=== PATIENT | male | born 1990 | race Caucasian/White ===

== ENCOUNTER 2021-08-20 19:55 | Emergency (ER) | payer SELFPAY ==
--- NOTE | 2021-08-20 19:42 | ECG_ITS ---
APPROVED REPORT Exam: Resting ECG HR:90 bpm ECG Measurements Heart Rate 90 AXES AL 134 P 52 QRSd 96 QRS 80 QT 350 T 57 QTc 428 Conclusion Normal sinus rhythm Normal ECG Electronically signed by : Matheus Gunter MD 08/23/2021 20:27:47
[2021-08-20 19:53] VITALS: BP 148/122; PULSE 103; RESP 18; TEMP 37.1; O2SAT 97; BMI 23.3
[2021-08-20 19:54] VITALS: BMI 23.3
--- NOTE | 2021-08-20 19:55 | CT_ITS ---
PROCEDURE INFORMATION: Exam: CTA Chest With Contrast Exam date and time: 08/20/2021 7:55 PM Age: 30 years old Clinical indication: Pain; Chest pressure; Additional info: Chest pain TECHNIQUE: Imaging protocol: Computed tomographic angiography of the chest with contrast. 3D rendering (Not supervised by radiologist): MIP and/or 3D reconstructed images were created by the technologist. Radiation optimization: All CT scans at this facility use at least one of these dose optimization techniques: automated exposure control; mA and/or kV adjustment per patient size (includes targeted exams where dose is matched to clinical indication); or iterative reconstruction. Contrast material: ISOVUE; Contrast volume: 70 ml; Contrast route: INTRAVENOUS (IV); COMPARISON: No relevant prior studies available. FINDINGS: Pulmonary arteries: Normal. No pulmonary emboli. Aorta: Unremarkable. No aortic aneurysm. No aortic dissection. Lungs: Unremarkable. No consolidation. No masses. Pleural spaces: Unremarkable. No pneumothorax. No pleural effusion. Heart: Unremarkable. No cardiomegaly. No pericardial effusion. Lymph nodes: Unremarkable. No enlarged lymph nodes. Bones/joints: Unremarkable. No acute fracture. Soft tissues: Unremarkable. IMPRESSION: No acute findings.
--- NOTE | 2021-08-20 19:55 | XR_ITS ---
PROCEDURE INFORMATION: Exam: XR Chest Exam date and time: 08/20/2021 7:55 PM Age: 30 years old Clinical indication: Sternal or substernal pain; Patient HX: Chest pain, patient states he has had 3 pulmonary embolisms in the past. Smoker. TECHNIQUE: Imaging protocol: XR of the chest. Views: 2 views. COMPARISON: CT ANGIO CHEST PE PROTOCOL 08/20/2021 8:14 PM FINDINGS: Lungs: Unremarkable. No consolidation. Pleural spaces: Unremarkable. No pleural effusion. No pneumothorax. Heart/Mediastinum: Unremarkable. No cardiomegaly. Bones/joints: Unremarkable. IMPRESSION: No acute findings.
--- NOTE | 2021-08-20 20:00 | PC.NURSE ---
pt arrived ems pt stated to had drank half a bottle of liquor prior to ambulance arrival. pt was ambulatory upon arrival and a&o*4
[2021-08-20 20:16] LABS: Microscopic, Urine URINE MICROSCOPIC (MICROSCOPIC)
[2021-08-20 20:17] LABS: Appearance,Urine CLEAR (Clear); Bilirubin,Urine Negative (Negative); Blood, Urine Negative (Negative); Color,Urine YELLOW (Yellow); Glucose,Urine (UA) Negative (Negative); Ketones,Urine Negative (Negative); Leukocyte Esterase,Urine Negative (Negative); Nitrate,Urine Negative (Negative); Protein,Urine Negative (Negative); Specific Gravity, Urine <= 1.005 (1.005-1.030); Urobilinogen,Urine 0.2 EU/dl (0.2)
[2021-08-20 20:20] LABS: Alanine Aminotransferase 29 U/L (12-78); Albumin Level 4.7 g/dl (3.5-5.0); Albumin/Globulin Ratio 1.3 (1.1-1.8); Alkaline Phosphatase 110 U/L (38-126); Anion Gap 14.6 mEq/L (5-15); Aspartate Amino Transferase 57 U/L (17-59); Bilirubin,Total 0.3 mg/dl (0.2-1.3); Blood Urea Nitrogen 7 mg/dl (9-20); Calcium 10.2 mg/dl (8.4-10.2); Carbon Dioxide 32 mmol/L (22.0-30.0); Chloride 103 mmol/L (98-107); Creatinine Clearance Estimated 145 mL/min (50-200); Estimated Glomerular Filt Rate 100 ml/min (>60); GFR (African American) 121 ML/MIN (>60); Globulin 3.7 g/dL (1.3-3.2); Glucose 98 mg/dl (74-100); Potassium 4.6 mmoL/L (3.5-5.1); Sodium 145 mmol/L (136-145); Total Protein,Serum 8.4 g/dl (6.3-8.2)
--- NOTE | 2021-08-20 20:20 | [facility].EDCP ---
ED Disposition Clinical Impression: Atypical chest pain Elevated ETOH level Qualifiers: Blood alcohol level: 240 mg/100 ml or more Qualified Code(s): Y90.8 - Blood alcohol level of 240 mg/100 ml or more Disposition: Left Against Medical Advice Condition on Discharge: Good Referrals: Provider,Referral, [Primary Care Provider] - - Critical Care Critical Care Time: No Attestation: On 08/20/21, the high probability of a clinically significant, sudden or life threatening deterioration of the following system(s) required my full and direct attention, intervention and personal management. The time I documented below is in addition to time spent performing reported procedures but includes the following listed in this critical care notation. Medical Decision Making - Medical Records Medical records reviewed: Yes: I reviewed the patient's medical records. - Naldo Inquiry Pt receiving controlled substance: No Vital Signs: 08/20/21 19:53 Temperature 98.8 F Temperature Source Oral Pulse Rate [Left] 103 H Respiratory Rate 18 Blood Pressure [Right Arm] 148/122 H Blood Pressure Mean [Right Arm] 130 02 Sat by Pulse Oximetry 97 Oxygen Delivery Method Room Air - Lab Data Lab results reviewed: Yes: I reviewed the patient's lab results. Lab Results 08/20/21 19:56: WBC 11.4 H, RBC 5.13, Hgb 16.9, Hct 49.9, MCV 97.3 H, MCH 33.0 H, MCHC 33.9, RDW 12.6, Plt Count 411, MPV 8.0, Neut % (Auto) 50.9, Lymph % (Auto) 35.6, [place]oshone % (Auto) 7.0, Eos % (Auto) 4.7, Baso % (Auto) 1.8, Neut # (Auto) 5.8, Lymph # (Auto) 4.1, [place]oshone # (Auto) 0.8, Eos # (Auto) 0.5 H, Baso # (Auto) 0.2 08/20/21 19:56: Sodium 145, Potassium 4.6, Chloride 103, Carbon Dioxide 32 H, Anion Gap 14.6, BUN 7 L, Creatinine 0.90, Estimated Creat Clear 145, Estimated GFR 100, Est GFR ( Amer) 121, Glucose 98, Calcium 10.2, Total Bilirubin 0.3, AST 57, ALT 29, Alkaline Phosphatase 110, Troponin I < 0.01, C-Reactive Protein 0.6, Total Protein 8.4 H, Albumin 4.7, Globulin 3.7 H, Albumin/Globulin Ratio 1.3, Procalcitonin < 0.030 08/20/21 20:03: Urine Color Yellow, Urine Appearance Clear, Urine pH 6.0, Ur Specific [place] <= 1.005, Urine Protein Negative, Urine Glucose (UA) Negative, Urine Ketones Negative, Urine Blood Negative, Urine Nitrate Negative, Urine Bilirubin Negative, Urine Urobilinogen 0.2, Ur Leukocyte Esterase Negative, Urine RBC None, Urine WBC Occasional, Ur Squamous Epith Cells Occasional, Urine Bacteria None Result diagrams: 08/20/21 19:56 08/20/21 19:56 Orders (Tests/Meds): ED MEDICATIONS Discontinued Medications Generic Name Dose Route Start Last Admin Trade Name Charlesq PRN Reason Stop Dose Admin Iopamidol 70 ml 08/20/21 20:13 08/20/21 20:14 Iopamidol-370 (76%);100ml Bottle IV 08/20/21 20:14 70 ml ONCE ONE Administration Sodium Chloride 50 ml 08/20/21 20:13 08/20/21 20:14 0.9 % Sodium Chloride 50 Ml Vial IV 08/20/21 20:14 50 ml ONCE ONE Administration Sodium Chloride 10 ml 08/20/21 20:13 08/20/21 20:14 Sodium Chloride 0.9% 10ml Syr (Rad Only) IV 08/20/21 20:14 10 ml ONCE ONE Administration ORDERS Category Date Time Status Blood alcohol [Ethyl Alcohol] Stat Lab 08/20/21 19:56 Received Complete Blood Count Auto Diff Stat Lab 08/20/21 19:56 Results Erythrocyte Sedimentation Rate Stat Lab 08/20/21 19:56 Results Troponin I Q3H Lab 08/20/21 23:00 Ordered Troponin I Q3H Lab 08/21/21 02:00 Ordered - Radiology Data #1 Image(s): Chest Image Reviewed: Yes I have reviewed radiologist's interpretation Preliminary Findings: Normal/NAD - CT Data CT Scan: Chest Time Received: 20:[address] Reviewed: Yes: I have viewed the radiologist's interpretation Preliminary Findings: No Fracture Seen - ECG Data Tracing #1 Normal Sinus Rhythm: Yes Ischemic changes: non-specific ST-T wave changes Medical Decision Narrative: pt left ama - no pul emboli but has elevated etoh Chest Pain HPI -
[2021-08-20 20:25] LABS: C-Reactive Protein 0.6 mg/L (0-4)
[2021-08-20 20:29] LABS: Basophils # 0.2 K/mm3 (0-0.2); Basophils % 1.8 % (0.1-2.0); Eosinophils # 0.5 K/mm3 (0.0-0.4); Eosinophils % 4.7 % (0.1-12.0); Hematocrit 49.9 % (42.0-52.0); Hemoglobin 16.9 g/dL (14.1-18.0); Lymphocytes # 4.1 K/mm3 (0.7-4.5); Lymphocytes % 35.6 % (10-50); Mean Corpuscular HGB Conc 33.9 g/dL (31.8-35.4); Mean Corpuscular Volume 97.3 fl (80-94); Monocytes # 0.8 K/mm3 (0.1-1.0); Neutrophils # 5.8 K/mm3 (1.8-7.8); Neutrophils % 50.9 % (37.0-80.0); Platelet Count 411 K/mm3 (142-424); Red Blood Count 5.13 M/mm3 (4.60-6.20); Red Cell Distribution Width 12.6 % (11.5-17.5); White Blood Count 11.4 K/mm3 (4.8-10.8)
[2021-08-20 20:35] LABS: Squamous Epithelial Cell,Urine Occasional #/hpf (0-5); WBC,Urine Occasional #/hpf (0-3)
[2021-08-20 20:36] LABS: Troponin I < 0.01 ng/ml (0.00-0.034)
[2021-08-20 20:50] LABS: Procalcitonin < 0.030 ng/mL (0.0-2.0)
[2021-08-20 20:51] LABS: Ethyl Alcohol 420 mg/dl (0-10)
--- NOTE | 2021-08-20 20:55 | PC.NURSE ---
pt signed out ama at 2044 stated his ride came and thats his only chance to get home. pt was told the risks and signed the ama form. iv was discontinued and he left ambulatory and oriented.
[2021-08-20 21:01] VITALS: BP 139/99; PULSE 81; RESP 13; TEMP 37.1; O2SAT 97
[2021-08-20 21:04] LABS: Erythrocyte Sedimentation Rate 1 mm/hr (0-15)
[2021-08-20 21:53] LABS: Benzodiazepines Screen,Urine Negative ng/ml (<200)
[2021-08-20 21:54] LABS: Amphetamine/Metha Screen,Urine Negative ng/ml (<1000)
[2021-08-20 21:55] LABS: Barbiturates Screen,Urine Negative ng/ml (<200); Cannabinoid Screen,Urine Negative ng/ml (<50)
[2021-08-20 21:56] LABS: Cocaine Screen,Urine Negative ng/ml (<300)
[2021-08-20 21:57] LABS: Methadone Screen,Urine Negative ng/ml (<300); Opiate Screen,Urine Negative ng/ml (<300)
[2021-08-20 21:58] LABS: Phencyclidine Screen,Urine Negative ng/ml (<25)
== END 2021-08-20 21:04 | disposition left against medical advice (07) ==
PROVIDERS: Family Medicine; Emergency Provider Emergency Medicine
DX: R07.89 Other chest pain (principal); Y90.8 Blood alcohol level of 240 mg/100 ml or more; I82.402 Acute embolism and thrombosis of unspecified deep veins of left lower extremity
CPT/HCPCS: 71046; 71275; 80053; 80305; 81001; 84145; 84484; 85025; 85651; 86140; 93005; 99282; Q9967